=== PATIENT | female | born 1950 | race Caucasian/White ===

== ENCOUNTER → 2017-09-18 | Outpatient (CLI) | payer MEDICARE ==
[~2017-09-18] MED LIST: GADOBUTROL 7.5 MMOL/7.5 ML VIAL ONE
== END ==
LOC: CFH 07:23
PROVIDERS: ATTEND Radiology Radiation Oncology
DX: C79.31 Secondary malignant neoplasm of brain (principal); D32.0 Benign neoplasm of cerebral meninges; G93.89 Other specified disorders of brain
CPT/HCPCS: 70553; A9585

== ENCOUNTER → 2017-10-07 | Outpatient (CLI) | payer MEDICARE | END | disposition home or self-care (01) | LOC: ROC 09:54 | PROVIDERS: ATTEND Radiology Radiation Oncology | DX: D32.0 Benign neoplasm of cerebral meninges (principal) | CPT/HCPCS: G0463 ==

== ENCOUNTER → 2019-10-03 | Outpatient (CLI) | payer MEDICARE ==
[~2019-10-03] MED LIST changes: -GADOBUTROL 7.5 MMOL/7.5 ML VIAL ONE; +GADOTERATE 7.5 MMOL/15 ML SYR ONE
== END | disposition home or self-care (01) ==
LOC: CFH 10:10
PROVIDERS: ATTEND Radiology Radiation Oncology
DX: G93.6 Cerebral edema (principal); D32.0 Benign neoplasm of cerebral meninges; R22.0 Localized swelling, mass and lump, head
CPT/HCPCS: 70553; A9575

== ENCOUNTER 2019-10-18 08:32 | Outpatient (CLI) | payer MEDICARE | END 2019-10-18 23:59 | disposition home or self-care (01) | LOC: ROC 08:32 | PROVIDERS: ATTEND Radiology Radiation Oncology | DX: D32.0 Benign neoplasm of cerebral meninges (principal) | CPT/HCPCS: G0463 ==

== ENCOUNTER → 2019-11-18 | Outpatient (CLI) | payer MEDICARE | END | disposition home or self-care (01) | LOC: RAD 14:47 | PROVIDERS: ATTEND Nurse Practitioner Gerontology | DX: D42.0 Neoplasm of uncertain behavior of cerebral meninges (principal) | CPT/HCPCS: 70450 ==

== ENCOUNTER → 2020-06-27 | Outpatient (CLI) | payer MEDICARE ==
[~2020-06-27] MED LIST changes: -GADOTERATE 7.5 MMOL/15 ML SYR ONE; +GADOTERATE 7.5 MMOL/15ML SYR ONE
== END | disposition home or self-care (01) ==
LOC: CFH 15:16
PROVIDERS: ATTEND Radiology Radiation Oncology
DX: I67.82 Cerebral ischemia (principal); D42.0 Neoplasm of uncertain behavior of cerebral meninges; G93.89 Other specified disorders of brain
CPT/HCPCS: 70553; A9575